=== PATIENT | male | born 1980 | race Caucasian/White ===

== ENCOUNTER 2020-03-28 12:56 | Emergency (ER) | payer MEDICAID, SELFPAY ==
[2020-03-28 13:06] VITALS: BP 117/75; PULSE 91; RESP 20; TEMP 36.6; O2SAT 99
--- NOTE | 2020-03-28 13:06 | ED.EAR ---
HPI - Ear Problem General Chief complaint: Ear Stated complaint: ear pain/pressure Time Seen by Provider: 03/28/20 13:06 Source: patient and RN notes reviewed History of Present Illness HPI Narrative: Patient is a 39-year-old male who presents the urgent care with complaints of left ear pain. Patient states is been ongoing for a couple weeks but exacerbated within the last 5 days. Patient states that he has extensive bilateral ear history including multiple surgeries due to sniffing . Patient states that he did chronic nasal sniffing for so long that he permanently ruptured and damaged bilateral eardrums . Patient states that he had surgery on the right from an [id number]. Patient states that he does need a left ear surgery but left the area before it was completed. Patient denies of any fever, nausea, vomiting. No other acute complaints. No acute distress noted. Patient read the plan of care. Related Data Allergies Allergy/AdvReac Type Severity Reaction Status Date / Time No Known Allergies Allergy Verified 03/28/20 13:14 Review of Systems Review of Systems: Narrative: CONSTITUTIONAL: Denies fever, chills, or sweats. EYES: Denies visual changes, redness, or discharge. ENT: reports of left otalgia. CARDIOVASCULAR: Denies chest pain, palpitations, or edema. RESPIRATORY: Denies cough or dyspnea. GASTROINTESTINAL: Denies abdominal pain, nausea, vomiting, or diarrhea. GENITOURINARY: Denies dysuria or hematuria. SKIN: Denies rash or itching. MUSCULOSKELETAL: Denies back pain, joint pain, or myalgia. NEUROLOGIC: Denies headache, numbness, or weakness. All other systems reviewed are negative, except as documented in HPI. PMFSH Comments At the time of my signature, I reviewed and agree with the nursing past medical, surgical, social, and family history. There is no relevant family history pertinent to the patient complaint. Exam Narrative: Exam Narrative: GENERAL: This is a well-nourished, well-developed patient, in no apparent distress. HEAD: normocephalic, atraumatic. EYES: PERRL. Sclera clear/white. Vision is grossly intact. EARS: External ears normal, auditory canals clear and without drainage, spontaneous rupture with effusion and erythema to the right TM, left TM with notable scarring. Hearing grossly intact. NOSE: External nose normal with no obvious nasal discharge, nares without redness, no rhinorrhea. THROAT: Mucous membranes moist NECK: Neck supple SKIN: warm, intact with no suspicious lesions or rash, good texture and turgor. NEURO: awake, alert, and oriented to person, place and time. There were no obvious focal neurologic abnormalities. EXTREMITIES: No clubbing, cyanosis, or edema. Course Vital Signs Vital signs: Vital Signs Temperature 97.8 F 03/28/20 13:06 Pulse Rate 91 03/28/20 13:06 Respiratory Rate 20 03/28/20 13:06 Blood Pressure 117/75 03/28/20 13:06 Pulse Oximetry 99 03/28/20 13:06 Temperature 97.8 F 03/28/20 13:06 Pulse Rate 91 03/28/20 13:06 Respiratory Rate 20 03/28/20 13:06 Blood Pressure 117/75 03/28/20 13:06 Pulse Oximetry 99 03/28/20 13:06 Reviewed Medical Decision Making MDM Narrative Medical decision making narrative: Advised the patient to use [id number] antihistamine and Flonase nasal spray for postnasal drainage and ear pressure. Use ibuprofen as needed for pain. Due to extensive history and current condition, will treat with oral antibiotics. Advised the patient to complete oral antibiotic regimen as prescribed. Make sure to eat and drink with the medication. Do not put anything in the ear including your fingers, Q-tips, water, peroxide. May use warm compress to the outside of the ear for comfort. You will need follow-up to an ENT for further evaluation. Call ENT office within 2 to 5 days. Differential Diagnosis Differential Diagnosis: Pneumonia, Allergic Rhinitis, Upper respiratory cough syndrome, Pharyngitis, Sinusitis, Bronchitis, charisse
== END 2020-03-28 13:30 | disposition home or self-care (01) ==
PROVIDERS: Emergency Provider Nurse Practitioner Family
DX: H66.92 Otitis media, unspecified, left ear (principal)
CPT/HCPCS: 99213; G0463

== ENCOUNTER 2020-05-19 14:32 | Emergency (ER) | payer OTHER, SELFPAY ==
--- NOTE | ~2020-05-19 | XR_ITS ---
EXAMINATION: XR tibia fibula RT 2V DATE: 05/19/2020 15:15 INDICATION: Distal right lower leg pain and abrasion TECHNIQUE: Anteroposterior and lateral views of the right tibia and fibula were obtained. COMPARISON: None. FINDINGS: Soft tissue swelling about the mid to distal lower leg most prominent anterior to the tibia. No radio paque foreign bodies. Bone alignment is normal. No fracture. Joint spaces appear relatively preserved . Small corticated either degenerative loose body or heterotopic ossification related to prior injury along the anterior margin of the tibial plafond. No right knee or ankle joint effusion. IMPRESSION: 1. No acute osseous abnormality or radiopaque foreign body. Reviewed, dictated and finalized at location A.
[2020-05-19 14:44] VITALS: BP 151/79; PULSE 95; RESP 20; TEMP 36.9; O2SAT 100
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
[2020-05-19] MEDS: KETOROLAC (*BKC) 60 MG/2 ML VIAL IM (15:19)
== END 2020-05-19 15:41 | disposition home or self-care (01) ==
PROVIDERS: Emergency Provider Nurse Practitioner
DX: S80.11XA Contusion of right lower leg, initial encounter (principal); W20.8XXA Other cause of strike by thrown, projected or falling object, initial encounter; Y99.0 Civilian activity done for income or pay; M54.6 Pain in thoracic spine
CPT/HCPCS: 73590; 96372; 99213; G0463; J1885

== ENCOUNTER 2021-03-06 15:45 | Emergency (ER) | payer MEDICAID, SELFPAY ==
--- NOTE | ~2021-03-06 | XR_ITS ---
EXAMINATION: XR chest 1V portable DATE: 03/06/2021 17:23 INDICATION: Cough, fever and loss of taste and smell. TECHNIQUE: frontal view of the chest was obtained. COMPARISON: None FINDINGS: The lungs are clear with no focal airspace opacities, pulmonary edema, pleural effusion or pneumothor ax. The cardiomediastinal silhouette is normal. Plate and screw fixations along the left seventh-nint h ribs. Embolization coil in left upper quadrant. Anterior plate and screw fixation for lower cervica l anterior spinal fusion. IMPRESSION: 1. No acute cardiopulmonary disease. Reviewed, dictated and finalized at location A.
[2021-03-06 15:51] VITALS: BP 124/74; PULSE 79; RESP 16; TEMP 36.2; O2SAT 100
[2021-03-06 16:53] VITALS: BP 117/83; PULSE 66; RESP 20; TEMP 36.6; O2SAT 99
--- NOTE | 2021-03-06 17:13 | ECG_ITS ---
Measurements Intervals [place] Rate: 54 P: 52 [place]: 169 QRS: 23 QRSD: 100 T: 53 QT: 403 QTc: 384 Interpretive Statements SINUS BRADYCARDIA POSSIBLE LEFT ATRIAL ENLARGEMENT INCOMPLETE RIGHT BUNDLE BRANCH BLOCK BORDERLINE ECG Electronically Signed On 03-06-2021 20:14:06 CDT by Jaime Schneider D.O.
--- NOTE | 2021-03-06 17:13 | ED.URI ---
HPI - URI/Sore Throat General Chief Complaint: Upper Respiratory Infection Stated Complaint: sob, can't smell Time Seen by Provider: 03/06/21 16:55 Source: patient Mode of arrival: ambulatory Limitations: no limitations History of Present Illness HPI Narrative: This is a 40 year old male that presents to the ER for cold symptoms x 3 days. Reports fever, cough, congestion, sore throat, and loss of sense of taste. Reports some trouble breathing. Denies chest pain or lower extremity edema. Related Data Allergies Allergy/AdvReac Type Severity Reaction Status Date / Time No Known Allergies Allergy Verified 05/19/20 14:59 Review of Systems Review of Systems: Narrative: CONSTITUTIONAL: Reports fever ENT: Reports rhinorrhea, congestion, sore throat CARDIOVASCULAR: Denies chest pain, or edema. RESPIRATORY: Reports cough and dyspnea. All systems reviewed & are unremarkable except as noted in HPI and below PMFSH Past Medical History Medical History (Updated 03/06/21 @ 18:37 by Anya Khan PA-C) Contusion of pancreas Fracture four ribs-closed Family History Family History Other No acute medical problems Social History Social History (Updated 05/19/20 @ 15:07 by Gricel Lancaster CNP) Smoking status: Never smoker Alcohol intake: never Exam Narrative: Exam Narrative: GENERAL: Well-appearing, well-nourished, and in no acute distress. HEAD: Normocephalic, atraumatic. EYES: EOMI. ENT: Nares clear, no rhinorrhea or epistaxis. Mucous membranes moist. Oropharynx without tonsillar hypertrophy exudate or other lesions. Bilateral TMs pearly horton non-bulging NECK: Supple. No adenopathy or masses. CHEST: Clear to auscultation. No respiratory distress. No wheezes rales or rhonchi HEART: Regular rate and rhythm. No murmur heard. Normal peripheral pulses. EXTREMITIES: Normal range of motion. No edema. SKIN: Warm, dry, no rash. NEURO: No focal deficits. Alert and oriented x3. PSYCH: Normal mood and affect Course Vital Signs Vital signs: Vital Signs Temperature 97.2 F L 03/06/21 15:51 Pulse Rate 79 03/06/21 15:51 Respiratory Rate 16 03/06/21 15:51 Blood Pressure 124/74 03/06/21 15:51 Pulse Oximetry 100 03/06/21 15:51 Temperature 98 F 03/06/21 16:53 Pulse Rate 66 03/06/21 16:53 Respiratory Rate 20 03/06/21 16:53 Blood Pressure 117/83 03/06/21 16:53 Pulse Oximetry 99 03/06/21 16:53 MDM - URI/Sore Throat MDM Narrative Medical decision making narrative: Patient presents the emergency department for cold symptoms x3 days. He is afebrile and nontoxic-appearing. Oxygen saturation is normal on room air. CBC and metabolic panel without concerning findings. Lipase is normal. Chest x-ray is without acute cardiopulmonary abnormalities. EKG without concerning findings. SARS-CoV-2 was sent. Patient was instructed on care of viral infection. He is to follow-up with primary care doctor. He was given warnings to return to the ER Lab Data Attestation: I reviewed the patient's lab results. Result diagrams: 03/06/21 17:30 03/06/21 17:30 Labs: Lab Results 03/06/21 03/06/21 03/06/21 Range/Units 17:30 17:30 17:30 WBC 6.0 (4.5-10.0) K/mm3 RBC 4.54 L (4.6-6.20) M/mm3 Hgb 14.1 (14.0-18.0) g/dL Hct 41.9 L (42.0-52.0) % MCV 92.3 (80-100) fl MCH 31.1 (26-34) pg MCHC 33.7 (32-36) g/dl RDW 12.9 (11.5-14.5) % Plt Count 204 (150-375) k/mm3 MPV 10.1 (7.4-10.4) fl Immature Gran % (Auto) 0.2 (0-0.5) % Neut % (Auto) 50.0 (45.5-73.1) % Lymph % (Auto) 30.4 (18.3-44.2) % [place] % (Auto) 14.4 H (2.6-8.5) % Eos % (Auto) 4.5 H (0-4.4) % Baso % (Auto) 0.5 (0.2-1.2) % Lymph # (Auto) 1.82 (0.9-3.2) K/mm3 [place] # (Auto) 0.9 H (0.1-0.6) K/mm3 Eos # (Auto) 0.3 (0-0.3) K/mm3 Baso # (Auto) 0.0 (0.0-0.1) K/mm3 Abs Immat Gran (auto)
[2021-03-06 17:39] LABS: Basophils Percent Auto 0.5 % (0.2-1.2); Eosinophils Absolute Auto 0.3 K/mm3 (0-0.3); Eosinophils Percent Auto 4.5 % (0-4.4); Hematocrit 41.9 % (42.0-52.0); Hemoglobin 14.1 g/dL (14.0-18.0); Immature Granulocyte Absolute 0.01 K/mm3 (0.00-0.031); Immature Granulocyte Percent A 0.2 % (0-0.5); Lymphocytes Absolute Auto 1.82 K/mm3 (0.9-3.2); Lymphocytes Percent Auto 30.4 % (18.3-44.2); Mean Corpuscular HGB Conc 33.7 g/dl (32-36); Mean Corpuscular Hemoglobin 31.1 pg (26-34); Mean Corpuscular Volume 92.3 fl (80-100); Mean Platelet Volume 10.1 fl (7.4-10.4); Monocytes Absolute Auto 0.9 K/mm3 (0.1-0.6); Monocytes Percent Auto 14.4 % (2.6-8.5); Platelet Count Result 204 k/mm3 (150-375); Red Blood Count 4.54 M/mm3 (4.6-6.20); Red Cell Distribution Width 12.9 % (11.5-14.5)
[2021-03-06 17:49] LABS: Alanine Aminotransferase 38 U/L (4-50); Alkaline Phosphatase 115 U/L (38-126); Anion Gap 2 mmol/L (8-16); Aspartate Amino Transferase 43 U/L (17-59); Bilirubin,Total 0.4 mg/dL (0.2-1.3); Blood Urea Nitrogen 12 mg/dL (9-20); Carbon Dioxide 33 mmol/L (22-30); Chloride 103 mmol/L (98-107); Estimated CRCL calculation 131 ml/min; Estimated Glomerular Filt Rate > 60; Glucose 97 mg/dL (75-110); Lactate Dehydrogenase 428 U/L (313-618); Lipase 39 U/L (23-300); Potassium 4.1 mmol/L (3.4-5.0); Sodium 138 mmol/L (137-145)
[2021-03-07 20:46] LABS: SARS-CoV-2 RNA PCR Negative
== END 2021-03-06 18:47 | disposition home or self-care (01) ==
PROVIDERS: Physician Assistant; Emergency Provider Emergency Medicine; PCP Family Medicine
DX: R50.9 Fever, unspecified (principal); R05 Cough; R09.81 Nasal congestion; J02.9 Acute pharyngitis, unspecified; R43.9 Unspecified disturbances of smell and taste; Z20.822 Contact with and (suspected) exposure to COVID-19; R00.1 Bradycardia, unspecified; I45.10 Unspecified right bundle-branch block; R94.31 Abnormal electrocardiogram [ECG] [EKG]
CPT/HCPCS: 36415; 71045; 80053; 82728; 83615; 83690; 85025; 93005; 99283; C9803; U0003; U0005

== ENCOUNTER 2021-06-26 13:19 | Emergency (ER) | payer OTHER, SELFPAY ==
[2021-06-26 13:38] VITALS: BP 117/74; PULSE 90; RESP 18; TEMP 37.4; O2SAT 100
[2021-06-26 13:48] VITALS: BP 117/74; PULSE 90; RESP 18; TEMP 37.4; O2SAT 100
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
== END 2021-06-26 14:25 | disposition home or self-care (01) ==
PROVIDERS: Emergency Provider Nurse Practitioner Family; PCP Family Medicine
DX: H66.92 Otitis media, unspecified, left ear (principal); Z87.891 Personal history of nicotine dependence
CPT/HCPCS: 99213; G0463

== ENCOUNTER 2021-07-08 10:01 | Emergency (ER) | payer OTHER, SELFPAY ==
--- NOTE | ~2021-07-08 | XR_ITS ---
EXAMINATION: XR ankle RT min 3V, XR foot RT min 3V DATE: 07/08/2021 10:46 INDICATION: Pain and swelling at the lateral right foot and ankle post injury. TECHNIQUE: 1. Anteroposterior, mortise, additional oblique and lateral view of the right ankle were obtained. 2. Dorsoplantar, two oblique and lateral views of the right foot were obtained. COMPARISON: None. FINDINGS: Alignment of the right foot and ankle is normal. No acute fracture or osteochondral lesion. Small cor ticated ossicle along the anterior rim of the tibial plafond and which could represent either a degen erative loose body, heterotopic ossicle or chronic nonunited avulsion fracture fragment. Joint spaces are well maintained. No ankle joint effusion. The soft tissues are unremarkable. IMPRESSION: 1. No acute osseous abnormality at the right foot or ankle. Reviewed, dictated and finalized at location A. IMPRESSION: 1. No acute osseous abnormality at the right foot or ankle.
[2021-07-08 10:15] VITALS: BP 120/86; PULSE 88; RESP 20; TEMP 36.6; O2SAT 99
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
== END 2021-07-08 11:57 | disposition home or self-care (01) ==
PROVIDERS: Emergency Provider General Practice; PCP Family Medicine
DX: S93.401A Sprain of unspecified ligament of right ankle, initial encounter (principal); S96.911A Strain of unspecified muscle and tendon at ankle and foot level, right foot, initial encounter; S93.601A Unspecified sprain of right foot, initial encounter; Z87.891 Personal history of nicotine dependence; Z98.1 Arthrodesis status; W23.1XXA Caught, crushed, jammed, or pinched between stationary objects, initial encounter
CPT/HCPCS: 73610; 73630; 99283

== ENCOUNTER 2021-09-06 15:37 | Emergency (ER) | payer OTHER, MEDICAID, SELFPAY ==
--- NOTE | ~2021-09-06 | XR_ITS ---
XR knee LT min 4V 09/06/2021 16:27 INDICATION: Left knee pain PROCEDURE: 4 views left knee COMPARISON: No prior studies for comparison. FINDINGS: Fracture, dislocation or subluxation is not identified. No significant joint effusion. The soft tissues appear within normal limits. No foreign bodies are identified. IMPRESSION: 1: NO ACUTE BONE OR JOINT ABNORMALITY IDENTIFIED. Reviewed, dictated and finalized at location A.
--- NOTE | ~2021-09-06 | CT_ITS ---
EXAMINATION: CT brain wo con, CT cervical spine wo con EXAM DATE: 09/06/2021 16:15 (accession [id number]), 09/06/2021 16:16 (accession [id number]) INDICATION: Fall, head injury, pain. Neck pain. History spinal fusion one year ago. TECHNIQUE: Spiral CT of the head was performed without contrast. Axial, coronal and sagittal images were reviewed. Spiral CT of the cervical spine was performed without contrast. Axial images were rev iewed. Coronal and sagittal reformatted images were also reviewed. The dose-length product (DLP) fo r this examination was 605.33 (accession [id number]), 363.25 (accession [id number]) mGy-cm. The exposure was tailored according to patient size, and iterative reconstruction (ASIR) was used as additional dose reduction technique. There is no prior study for comparison. 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 This would be an unusual location for cerebral artery aneurysm. This is indicated on axial image 16. There is another left-sided posterior fossa calcification along the expected location of choroid. There is no acute intraparenchymal hemorrhage. No evidence of intraparenchymal brain mass lesion. N o evidence of acute infarction. There is no mass effect or midline shift. There is no obstructive hyd rocephalus suspected. There are no extra-axial collections. There are no acute calvarial fractures. The orbits are unremarkable. Soft tissue is unremarkable. The visualized sinuses and mastoid air cells are well aerated. CERVICAL CT: There is no evidence of acute cervical fracture. The odontoid process is intact. Pre- dens space is normal. Prevertebral soft tissue is normal. There are no soft tissue abnormalities id entified. There is no disc space widening or traumatic vertebral body subluxation suspected. There is anterior and interbody fusion C5-7. There is significant right-sided C2-3 uncovertebral joint arth ropathy causing moderate to severe stenosis of this neural foramina. Otherwise relatively mild cervic al arthritis. IMPRESSION: 1. No acute intracranial findings or cervical fracture. 2. 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 3. Moderate to severe right C2-3 neural foraminal stenosis. Otherwise mild spondylosis. 4. Intact C5-7 fusion. Reviewed, dictated and finalized at location B. IMPRESSION: 1. No acute intracranial findings or cervical fracture. 2. 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 3. Moderate to severe right C2-3 neural foraminal stenosis. Otherwise mild spo ndylosis. 4. Intact C5-7 fusion.
--- NOTE | ~2021-09-06 | XR_ITS ---
XR shoulder LT min 2V 09/06/2021 16:27 Indication: Left shoulder pain after fall Procedure: 4 views left shoulder Comparison: No prior studies for comparison. Findings: No fracture, subluxation or dislocation. There is anatomic alignment. There are side plate and screws transfixing multiple left ribs. No significant soft tissue abnormality. No foreign bodies. There is lower cervical spinal fusion change. Impression: 1: No acute bone or joint abnormality. Reviewed, dictated and finalized at location A. Impression: 1: No acute bone or joint abnormality.
[2021-09-06 15:40] VITALS: BP 145/78; PULSE 70; RESP 17; TEMP 36.3; O2SAT 100
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
[2021-09-06] MEDS: IBUPROFEN 600 MG TABLET PO (16:33)
== END 2021-09-06 17:58 | disposition home or self-care (01) ==
LOC: ANHED 17:19
PROVIDERS: Emergency Provider Emergency Medicine; PCP Family Medicine
DX: S80.02XA Contusion of left knee, initial encounter (principal); S16.1XXA Strain of muscle, fascia and tendon at neck level, initial encounter; S00.93XA Contusion of unspecified part of head, initial encounter; Z87.891 Personal history of nicotine dependence; Y04.0XXA Assault by unarmed brawl or fight, initial encounter
CPT/HCPCS: 70450; 72125; 73030; 73564; 99284; A9270

== ENCOUNTER 2021-10-28 14:23 | Emergency (ER) | payer OTHER, MEDICAID, SELFPAY ==
[2021-10-28 14:38] VITALS: BP 114/82; PULSE 88; RESP 16; TEMP 37; O2SAT 100
[2021-10-28 14:57] VITALS: BP 114/82; PULSE 88; RESP 16; TEMP 37; O2SAT 100
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
[2021-10-30 19:44] LABS: SARS-CoV-2 RNA PCR Positive
== END 2021-10-28 16:16 | disposition home or self-care (01) ==
PROVIDERS: Emergency Provider Registered Nurse
DX: U07.1 COVID-19 (principal); Z87.891 Personal history of nicotine dependence
CPT/HCPCS: 87804; 99213; C9803; G0463; U0003; U0005

== ENCOUNTER 2021-11-28 09:42 | Emergency (ER) | payer OTHER, MEDICAID, SELFPAY ==
[2021-11-28 09:50] VITALS: BP 137/91; PULSE 87; RESP 20; TEMP 37.2; O2SAT 98
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
== END 2021-11-28 10:13 | disposition home or self-care (01) ==
PROVIDERS: Emergency Provider Nurse Practitioner Family; PCP Family Medicine
DX: J32.9 Chronic sinusitis, unspecified (principal); Z87.891 Personal history of nicotine dependence; Z86.16 Personal history of COVID-19
CPT/HCPCS: 99213; G0463

== ENCOUNTER 2022-10-17 08:04 | Emergency (ER) | payer OTHER, MEDICAID, SELFPAY ==
--- NOTE | ~2022-10-17 | CT_ITS ---
EXAMINATION: CT cervical spine wo con DATE: 10/17/2022 08:56 INDICATION: Neck pain. TECHNIQUE: Computed tomography (CT) of the cervical spine was performed without intravenous contrast. The dose-length product was 447 mGy-cm. 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 COMPARISON: CT dated 09/06/2021 FINDINGS: There is mild dextrocurvature of the cervical spine. There surgical fusion changes at C5-C7 with this replacement. The odontoid process is normal. No significant paraspinal soft tissue abnorma lity. Mild emphysematous changes of the lung apices. There is mild multilevel uncinate hypertrophy. T here is right neural foraminal narrowing secondary to facet and endplate hypertrophy at C2-3. IMPRESSION: 1. No acute abnormality of the cervical spine. 2: Mild-moderate cervical spondylosis with right neural foraminal stenosis at C2-3. Reviewed, dictated and finalized at location A. [facility] IMPRESSION: 1. No acute abnormality of the cervical spine. 2: Mild-moderate cervical spondylosis with right neural foraminal stenosis at C 2-3.
--- NOTE | ~2022-10-17 | XR_ITS ---
XR thoracic spine 3V 10/17/2022 09:04 Indication: Back pain. Lifting injury. Procedure: 3 views thoracic spine Comparison: No prior studies for comparison. Findings: Vertebral body heights are maintained. There are cervical fusion changes at C5-C7. Normal t horacic kyphosis. No fracture or traumatic malalignment. Surrounding osseous structures are unremarka ble. There are side plates and screws transfixing the left seventh-ninth ribs. Impression: 1: No acute abnormality of the thoracic spine. Reviewed, dictated and finalized at location A. [facility] Impression: 1: No acute abnormality of the thoracic spine.
--- NOTE | ~2022-10-17 | XR_ITS ---
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 Low back pain. Procedure: 3 views lumbar spine Comparison: No prior studies for comparison. Findings: There are embolization coils in the left upper abdomen. Vertebral body heights are maintain ed. No fracture or traumatic malalignment. No evidence for spondylolisthesis. Sacral foramen are symm etric. Pedicles intact. Normal lumbar lordosis. Impression: 1: No acute abnormality of the lumbar spine. Reviewed, dictated and finalized at location A. HOLDER Impression: 1: No acute abnormality of the lumbar spine.
[2022-10-17 08:07] VITALS: BP 113/83; PULSE 85; RESP 12; TEMP 37.1; O2SAT 98
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
[2022-10-17 08:31] VITALS: BP 112/75; PULSE 82; RESP 20; O2SAT 97
[2022-10-17] MEDS: ONDANSETRON HCL ODT 4 MG TABLET PO (09:07)
[2022-10-17] MEDS: ACETAMINOPHEN 500 MG TABLET 1000 MG PO (09:07)
[2022-10-17] MEDS: KETOROLAC (*BKC) 60 MG/2 ML VIAL IM (09:07)
[2022-10-17] MEDS: HYDROmorphone HCL INJ (*CRX) 1 MG/ML SYR IM (09:08)
[2022-10-17 10:00] VITALS: BP 126/76; PULSE 79; RESP 15; O2SAT 100
== END 2022-10-17 10:50 | disposition home or self-care (01) ==
PROVIDERS: Emergency Provider Emergency Medicine
DX: S39.012A Strain of muscle, fascia and tendon of lower back, initial encounter (principal); S16.1XXA Strain of muscle, fascia and tendon at neck level, initial encounter; Z98.1 Arthrodesis status; Z87.891 Personal history of nicotine dependence; M47.812 Spondylosis without myelopathy or radiculopathy, cervical region; X50.0XXA Overexertion from strenuous movement or load, initial encounter
CPT/HCPCS: 72072; 72100; 72125; 96372; 99284; A9270; J1170; J1885

== ENCOUNTER 2022-10-19 16:58 | Emergency (ER) | payer OTHER, MEDICAID, SELFPAY ==
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
[2022-10-19 17:10] VITALS: BP 118/72; PULSE 80; RESP 16; TEMP 36.8; O2SAT 99
[2022-10-19] MEDS: KETOROLAC (*BKC) 60 MG/2 ML VIAL IM (17:24)
== END 2022-10-19 17:43 | disposition home or self-care (01) ==
PROVIDERS: Emergency Provider Nurse Practitioner Family
DX: S16.1XXA Strain of muscle, fascia and tendon at neck level, initial encounter (principal); S39.012A Strain of muscle, fascia and tendon of lower back, initial encounter; Z87.891 Personal history of nicotine dependence; X50.0XXA Overexertion from strenuous movement or load, initial encounter; Y99.0 Civilian activity done for income or pay
CPT/HCPCS: 96372; 99213; G0463; J1885

== ENCOUNTER 2022-12-07 18:31 | Emergency (ER) | payer OTHER, MEDICAID, SELFPAY ==
[2022-12-07 18:37] VITALS: BP 130/79; PULSE 99; RESP 16; TEMP 36.7; O2SAT 99
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
[2022-12-07] MEDS: KETOROLAC 30 MG/ML VIAL (*BKC) IV PUSH (20:23)
[2022-12-07] MEDS: SODIUM CHLORIDE 0.9% IV 1,000 ML 999 ML IV CONT (20:23)
[2022-12-07] MEDS: diazePAM INJ (*CRX) 10 MG/2 ML SYRINGE 5 MG IV PUSH (20:24)
[2022-12-07 20:27] VITALS: BP 149/94; PULSE 100; RESP 18; O2SAT 98
[2022-12-07 20:30] VITALS: BP 149/92; PULSE 95; RESP 18; O2SAT 98
[2022-12-07 20:31] LABS: Appearance Urine Clear (Clear); Bilirubin Urine Negative (Negative); Blood Urine Negative (Negative); Color Urine Yellow (Yellow); Glucose Urine UA Negative (Negative); Ketones Urine Trace mg/dL (Negative); Leukocyte Esterase Ur Negative LEU/UL (Negative); Nitrate Urine Negative (Negative); Protein Urine 2+ mg/dL (Negative); Specific Grav Ur 1.025 (1.001-1.035); Urobilinogen Urine 0.2 mg/dL (<2.0); pH Urine 6.5 (5.0-9.0)
[2022-12-07 20:37] LABS: Mucus Urine Rare /lpf; RBC Urine 0-2 /hpf (0-2); WBC Urine 0-3 /hpf
[2022-12-07 20:40] LABS: Add Urine Microscopic? YES
[2022-12-07 21:52] VITALS: BP 124/78; PULSE 95; RESP 18; O2SAT 99
== END 2022-12-07 22:13 | disposition home or self-care (01) ==
PROVIDERS: Emergency Provider Emergency Medicine
DX: M54.50 Low back pain, unspecified (principal); G89.29 Other chronic pain; Z87.891 Personal history of nicotine dependence; Z98.1 Arthrodesis status
CPT/HCPCS: 81001; 96361; 96374; 96375; 99284; J1885; J3360; J7030

== ENCOUNTER 2023-02-25 12:28 | Emergency (ER) | payer OTHER, MEDICAID, SELFPAY ==
[2023-02-25 12:40] VITALS: BP 129/93; PULSE 106; RESP 16; TEMP 36.9; O2SAT 99
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
== END 2023-02-25 13:28 | disposition home or self-care (01) ==
PROVIDERS: Emergency Provider Nurse Practitioner
DX: J30.9 Allergic rhinitis, unspecified (principal); Z20.822 Contact with and (suspected) exposure to COVID-19; Z87.891 Personal history of nicotine dependence
CPT/HCPCS: 87426; 87804; 99212; C9803; G0463

== ENCOUNTER 2024-01-01 15:01 | Emergency (ER) | payer OTHER, MEDICAID, SELFPAY ==
--- NOTE | ~2024-01-01 | XR_ITS ---
EXAMINATION: XR chest 2V DATE: 01/01/2024 15:53 INDICATION: Cough TECHNIQUE: Frontal and lateral views of the chest are obtained COMPARISON: 03/06/2021 FINDINGS: The lungs are free of acute opacities. No pleural effusion or pneumothorax. The cardiomedia stinal silhouette is normal. There is mild thoracic spondylosis. There is plate and screw fixation of multiple left-sided ribs. Changes of anterior fusion procedure are noted in the lower cervical spine . There are embolization coils in the left upper quadrant. IMPRESSION: 1. No acute cardiopulmonary abnormality. Reviewed, dictated and finalized at location B. ORDER PERSON
[2024-01-01 15:20] VITALS: BP 114/74; PULSE 69; RESP 16; TEMP 36.9; O2SAT 100
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
== END 2024-01-01 16:05 | disposition home or self-care (01) ==
PROVIDERS: Emergency Provider Registered Nurse
DX: B34.9 Viral infection, unspecified (principal); Z20.822 Contact with and (suspected) exposure to COVID-19; Z87.891 Personal history of nicotine dependence
CPT/HCPCS: 71046; 87426; 87804; 99213; G0463

== ENCOUNTER 2024-03-01 18:51 | Emergency (ER) | payer OTHER, MEDICAID, SELFPAY ==
[2024-03-01 18:58] VITALS: BP 128/73; PULSE 76; RESP 20; TEMP 37.1; O2SAT 100
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
== END 2024-03-01 19:50 | disposition home or self-care (01) ==
PROVIDERS: Emergency Provider Nurse Practitioner
DX: J02.0 Streptococcal pharyngitis (principal); Z20.822 Contact with and (suspected) exposure to COVID-19; Z87.891 Personal history of nicotine dependence
CPT/HCPCS: 87426; 87804; 87880; 99213; G0463

== ENCOUNTER 2024-06-01 04:18 | Emergency (ER) | payer OTHER, SELFPAY ==
--- NOTE | ~2024-06-01 | CT_ITS ---
EXAMINATION: CT cervical spine wo con DATE: 06/01/2024 04:44 INDICATION: Trauma TECHNIQUE: Computed tomography (CT) of the cervical spine was performed without intravenous contrast. Automated exposure control and iterative reconstruction technique were employed. The dose-length pro duct was 447.61 mGy-cm. COMPARISON: 10/17/2022 FINDINGS: Mild cervicothoracic dextrocurvature with unchanged mild left anterior vertebral body height loss at T1. Mild straightening of the normal cervical lordosis likely positional related to the presence of a cervical collar. Instrumented C5-C7 anterior spinal fusion anterior plate and screws and interbody b one graft cages. There is solid osseous fusion across the C6-C7 disc space but persistent lucency acr oss the narrowed C5-C6 disc space with chronic fracture of the right-sided screw at C5. Remaining cj tebral body heights are normal. No acute fracture. Unfused cervical disc heights are normal. Disc bul ges resulting mild central canal stenosis at C3-C4 and C4-C5. Mild disc height loss at T2-T3 and T3-T 4. Moderate facet osteoarthritis on the left at C7-T1 and on the right at C2-C3 and C5-C6. Otherwise mild cervical facet and upper thoracic osteoarthritis. Moderate uncovertebral osteoarthritis on the r ight at C2-C3 contributing to moderate neural foraminal stenosis at this level. Otherwise mild uncove rtebral osteoarthritis the remaining unfused levels with minimal neural foraminal stenosis at several of the remaining bilateral cervical neural foramina. Cervical soft tissues are unremarkable. Mild em physema at the apices of lungs. IMPRESSION: 1. No acute osseous abnormality. 2. Unchanged mild to moderate cervical spondylosis. 3. Unchanged C5-C7 anterior spinal fusion with anterior plate and screw fixation with chronic fractur e of the right-sided screw at C5 and with persistent lucency across the narrowed C5-C6 disc space. Reviewed, dictated and finalized at location A. IMPRESSION: 1. No acute osseous abnormality. 2. Unchanged mild to moderate cervical spondylosis. 3. Unchanged C5-C7 anterior spinal fusion with anterior plate and screw fixatio n with chronic fracture of the right-sided screw at C5 and with persistent luce ncy across the narrowed C5-C6 disc space.
--- NOTE | ~2024-06-01 | CT_ITS ---
EXAMINATION: CT brain wo con DATE: 06/01/2024 04:44 INDICATION: Trauma TECHNIQUE: Computed tomography (CT) of the head was performed without intravenous contrast. Sagittal and coronal reconstructions were performed. The mA was adjusted according to patient size. Iterative reconstruction technique was employed. The dose-length product was 447.61 mGy-cm. COMPARISON: head CT dated 09/06/2021 FINDINGS: No fracture. No acute intracranial hemorrhage, acute infarction or abnormal extra axial fluid collect ion. No significant interval change in a few scattered small foci of nonspecific white matter hypoatt enuation which is disproportionate for age. Ventricles are normal and symmetric. No mass/mass effect. A few unchanged choroid plexus calcifications in the bilateral and fourth ventricles. The orbits are normal. The callosal thickening, mild in the left maxillary and bilateral ethmoid and sphenoid sinus es and moderate in the right maxillary sinus where there is also some dependently layering fluid. Bashir laura mucus in the right sphenoid sinus. Status post right mastoidectomy. Chronic left mastoid effusion . IMPRESSION: 1. No fracture or acute intracranial process. 2. Unchanged mild nonspecific cerebral white matter disease. The differential diagnosis includes ming ature chronic small vessel ischemic disease (especially if the patient has cardiovascular risk factor s), demyelinating disease such as multiple sclerosis, drug abuse, vasculitis, or reactive astrocytosi s (gliosis) secondary to nonspecific etiology. 3. Sinus disease with layering fluid and bubbly mucus suggesting acute sinusitis. Reviewed, dictated and finalized at location A. IMPRESSION: 1. No fracture or acute intracranial process. 2. Unchanged mild nonspecific cerebral white matter disease. The differential d iagnosis includes premature chronic small vessel ischemic disease (especially i f the patient has cardiovascular risk factors), demyelinating disease such as m ultiple sclerosis, drug abuse, vasculitis, or reactive astrocytosis (gliosis) s econdary to nonspecific etiology. 3. Sinus disease with layering fluid and bubbly mucus suggesting acute sinusiti s.
--- NOTE | ~2024-06-01 | XR_ITS ---
EXAMINATION: XR chest 1V portable DATE: 06/01/2024 06:12 INDICATION: Chest pain TECHNIQUE: frontal view of the chest was obtained. COMPARISON: Chest radiograph dated 01/01/2024 FINDINGS: The lungs remain clear with no focal airspace opacities, pulmonary edema, pleural effusion or pneumot horax. Heart size is normal. Plate and screw fixation along multiple left sided ribs. Partially visua lized anterior plate-screw fixation for lower cervical anterior spinal fusion. Embolization coils in the left upper quadrant. IMPRESSION: 1. No acute cardiopulmonary disease. Reviewed, dictated and finalized at location A.
[2024-06-01 04:17] VITALS: BP 142/113; PULSE 90; RESP 20; TEMP 37.1; O2SAT 100
[2024-06-01 04:21] VITALS: BP 142/113; PULSE 91; PULSE 97; RESP 16; O2SAT 100
[2024-06-01 04:38] LABS: Basophils Percent Auto 0.3 % (0.2-1.2); Eosinophils Absolute Auto 0.1 K/mm3 (0-0.3); Eosinophils Percent Auto 1.6 % (0-4.4); Hematocrit 43.4 % (42.0-52.0); Hemoglobin 14.8 g/dL (14.0-18.0); Immature Granulocyte Absolute 0.02 K/mm3 (0.00-0.031); Immature Granulocyte Percent A 0.3 % (0-0.5); Lymphocytes Absolute Auto 1.76 K/mm3 (0.9-3.2); Lymphocytes Percent Auto 23.1 % (18.3-44.2); Mean Corpuscular HGB Conc 34.1 g/dl (32-36); Mean Corpuscular Volume 93.7 fl (80-100); Mean Platelet Volume 9.9 fl (7.4-10.4); Monocytes Absolute Auto 0.7 K/mm3 (0.1-0.6); Monocytes Percent Auto 9.7 % (2.6-8.5); Platelet Count Result 242 k/mm3 (150-375); Red Blood Count 4.63 M/mm3 (4.6-6.20); Red Cell Distribution Width 12.7 % (11.5-14.5); White Blood Count 7.6 K/mm3 (4.5-10.0)
[2024-06-01 04:56] LABS: Alanine Aminotransferase 59 U/L (6-50); Albumin Level 4.1 g/dL (3.5-5.1); Alkaline Phosphatase 139 U/L (38-126); Anion Gap 7 mmol/L (4-12); Aspartate Amino Transferase 53 U/L (17-59); Bilirubin,Total 0.3 mg/dL (0.2-1.3); Blood Urea Nitrogen 13 mg/dL (9-20); Calcium 9.2 mg/dL (8.4-10.2); Carbon Dioxide 30 mmol/L (22-30); Chloride 100 mmol/L (98-107); Estimated CRCL calculation 127 ml/min; Estimated Glomerular Filt Rate > 60; Glucose 122 mg/dL (65-110); Potassium 3.4 mmol/L (3.4-5.0); Sodium 137 mmol/L (137-145)
[2024-06-01 05:04] VITALS: BP 121/78; PULSE 75; RESP 19; O2SAT 98
[2024-06-01 05:16] VITALS: BP 122/72; PULSE 85; RESP 21; O2SAT 99
[2024-06-01 05:31] VITALS: BP 113/89; PULSE 90; RESP 24; O2SAT 100
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
[2024-06-01] MEDS: ACETAMINOPHEN 500 MG TABLET 1000 MG PO (05:41)
[2024-06-01] MEDS: KETOROLAC 15 MG/ML VIAL (*BKC) IV PUSH (05:41)
[2024-06-01] MEDS: methocarbamoL 750 MG TABLET 1500 MG PO (05:42)
[2024-06-01] MEDS: traMADol HCL (*CRX) 50 MG TABLET PO (05:42)
--- NOTE | 2024-06-01 05:57 | PC.NURSE ---
this rn went to give medications that were prescribed by edp dr. goodrich. pt then started to get verbally aggressive with staff. Pt started yelling profanity at this rn. this rn attempted to educated and explain procedures and medications to patient. pt continued to yell at this rn. pt stated, Kodakk that mother dinorah, I know something is wrong with me I have facial numbness. He is not qualified to read my scans. Fuck that mother dinorah . This rn educated patient about protocol on who reads scans at this facility. pt then sat up unassisted out of the bed and continued to become verbally aggressive with this rn. pt started requesting discharge papers, so I can go to a real hospital . this rn explained patient options and risks and benfits. pt then stated, I am not going to leave against medical advice then I cannot use it for work . this rn administered medications to patient. edp dr. goodrich made aware and nurse discharge Marielos aware.
[2024-06-01 05:58] LABS: Appearance Urine Clear (Clear); Bilirubin Urine Negative (Negative); Blood Urine Negative (Negative); Color Urine Yellow (Yellow); Glucose Urine UA Negative (Negative); Ketones Urine Negative (Negative); Leukocyte Esterase Ur Negative LEU/UL (Negative); Nitrate Urine Negative (Negative); Protein Urine Negative (Negative); Specific Grav Ur 1.006 (1.001-1.035); Urobilinogen Urine 0.2 mg/dL (<2.0)
[2024-06-01 06:03] LABS: Ethanol < 10 mg/dL (<10)
[2024-06-01 06:09] LABS: Add Urine Microscopic? NO
--- NOTE | 2024-06-01 06:09 | PC.NURSE ---
Upon pt receiving a chest xray pt began to get verbally aggressive with staff members. pt stated, I don't understand why I cannot just go, no one is doing anything for me. I hate that mother fucking doctor . this rn explained to patient that importance of obtaining a chest xray. Pt then stated, funny how he wants to order it now after I expressed my concern for it . xray staff obtained chest xray. pt continued to raise his voice at staff about wanting to be discharged and go home because no one cares about his care . this rn educated patient on the appropriate way to communicate to staff members. pt continued to get verbally aggressive. this rn called hospital security to help staff.
[2024-06-01 06:15] LABS: Amphetamine Screen Urine Negative (Negative); Barbiturate Screen Urine Negative (Negative); Benzodiazepines Screen Urine Negative (Negative); Cannabinoid Screen Urine Positive (Negative); Cocaine Screen Urine Negative (Negative); Methadone Screen Urine Negative (Negative); Opiate Screen Urine Negative (Negative); Phencyclidine Screen Urine Negative (Negative)
--- NOTE | 2024-06-01 06:27 | PC.NURSE ---
this rn, conveyor line battery charger, and ed security went to discharge patient. this rn removed iv catheters x2 with conveyor line battery charger. pt continued to get aggressive with staff. pt started to escalte with security stated, security is trying to intimidate me and have an angry face . this rn attempted to give patient discharge instructions. pt refused discharge instructions. pt continued to raise his voice at staff stating, I didn't choose to come here, fuck that doctor he is always my doctor and never is good, he needs to get life coaching. I never used profanity or got aggressive . this rn attempted again to give discharge instructions. Pt stated, you are the ones releasing me, so this is all on you . edp dr. goodrich aware, conveyor line battery charger Marielos aware. pt was escorted towards the exit of the ed by ed security.
== END 2024-06-01 06:16 | disposition home or self-care (01) ==
PROVIDERS: Emergency Provider Emergency Medicine
DX: S19.9XXA Unspecified injury of neck, initial encounter (principal); R45.6 Violent behavior; Z98.1 Arthrodesis status; Z87.891 Personal history of nicotine dependence; W11.XXXA Fall on and from ladder, initial encounter
CPT/HCPCS: 36415; 70450; 71045; 72125; 80053; 80307; 81003; 85025; 96374; 99284; A9270; J1885

== ENCOUNTER 2024-11-09 08:14 | Emergency (ER) | payer OTHER, SELFPAY ==
[2024-11-09 08:20] VITALS: BP 130/73; PULSE 64; RESP 16; TEMP 36.4; O2SAT 100
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
[2024-11-09 08:47] LABS: EDCOVIDSCREEN Negative (Negative); EDINFLUASCREEN Negative (Negative); EDINFLUBSCREEN Negative (Negative)
== END 2024-11-09 09:08 | disposition home or self-care (01) ==
PROVIDERS: Emergency Provider Nurse Practitioner Family
DX: K52.9 Noninfective gastroenteritis and colitis, unspecified (principal); Z87.891 Personal history of nicotine dependence
CPT/HCPCS: 87426; 87804; 99213; G0463

== ENCOUNTER 2025-02-14 09:57 | Emergency (ER) | payer BC, SELFPAY ==
[2025-02-14 10:10] VITALS: BP 142/80; PULSE 80; RESP 16; TEMP 36.1; O2SAT 99
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
== END 2025-02-14 10:37 | disposition home or self-care (01) ==
PROVIDERS: Emergency Provider Nurse Practitioner
DX: F43.9 Reaction to severe stress, unspecified (principal); Z87.891 Personal history of nicotine dependence
CPT/HCPCS: 99211; G0463

== ENCOUNTER 2025-04-15 12:35 | Emergency (ER) | payer BC, SELFPAY ==
[2025-04-15 12:43] VITALS: BP 118/75; PULSE 86; RESP 16; TEMP 36.7; O2SAT 99
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
== END 2025-04-15 13:14 | disposition home or self-care (01) ==
PROVIDERS: Emergency Provider Nurse Practitioner Family
DX: Z56.3 Stressful work schedule (principal); Z87.891 Personal history of nicotine dependence
CPT/HCPCS: 99211; G0463

== ENCOUNTER 2025-07-15 08:12 | Emergency (ER) | payer OTHER, SELFPAY ==
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
[2025-07-15 08:20] VITALS: BP 131/82; PULSE 67; RESP 16; TEMP 36.4; O2SAT 100
== END 2025-07-15 08:53 | disposition home or self-care (01) ==
PROVIDERS: Emergency Provider Nurse Practitioner Family
DX: S16.1XXA Strain of muscle, fascia and tendon at neck level, initial encounter (principal); Z87.891 Personal history of nicotine dependence; W01.0XXA Fall on same level from slipping, tripping and stumbling without subsequent striking against object, initial encounter
CPT/HCPCS: 99213; G0463